=== PATIENT | male | born 1955 | race Two or more races ===

== ENCOUNTER 2020-04-04 12:47 | Inpatient (IN) | payer OTHER ==
[~2020-04-04] VITALS: Ht 165.1 cm; Wt 121.3 kg
[2020-04-04] MEDS ORDERED: ACETAMINOPHEN 325 MG TAB PO ONE ×2 (13:39→13:45)
[2020-04-04 13:40] LABS: Basophils # (auto) 0.1 10 ^3/uL (0-0.2); Basophils % (auto) 1.1 % (0.0-2.0); Eosinophils # (auto) 0 10 ^3/uL (0-0.8); Hematocrit 44.3 % (41.0-53.0); Hemoglobin 15.1 g/dL (13.5-17.5); Lymphocytes # (auto) 1.2 10 ^3/uL (0.4-5.4); Lymphocytes % (auto) 21.7 % (10.0-50.0); Mean Corpuscular Hemoglobin 31.9 pg (28.0-32.0); Mean Corpuscular Hgb Conc. 34.1 g/dL (32.0-36.0); Mean Corpuscular Volume 93.5 fL (80.0-100.0); Monocytes # (auto) 0.4 10 ^3/uL (0-1.3); Monocytes % (auto) 7.7 % (0.0-12.0); Neutrophils # (auto) 3.9 10 ^3/uL (1.6-8.6); Neutrophils % (auto) 69.5 % (37.0-80.0); Nucleated Red Blood Cells % 0.4 %; Platelet Count (auto) 178 10^3/uL (140-450); Red Blood Cells 4.74 10^6/uL (4.5-5.90); Red Cell Distribution Width 13.3 % (11.8-14.3); White Blood Cell 5.6 10^3/uL (4.4-10.8)
[2020-04-04 13:50] LABS: Chloride 100 mmol/L (98-107); Potassium 3.8 mmol/L (3.5-5.1); Sodium 134 mmol/L (136-145)
[2020-04-04 14:00] LABS: Alanine Aminotransferase 39 U/L (16-61); Albumin 3.1 g/dL (3.4-5.0); Alkaline Phosphatase 121 U/L (45-117); Anion Gap 5 (5-15); Aspartate Aminotransferase 56 U/L (15-37); BUN/Creatinine Ratio 7.5; Bilirubin, Total 1.1 mg/dL (0.2-1.0); Blood Urea Nitrogen 8 mg/dL (7-18); Calcium 8.5 mg/dL (8.5-10.1); Carbon Dioxide 29 mmol/L (21-32); GFR African American 89 mL/min; GFR Non-African American 74 mL/min; Glucose 109 mg/dL (74-106); Total Protein 8.9 g/dL (6.4-8.2)
[2020-04-04] MEDS ORDERED: MORPHINE SULF INJ 2 MG/ML SYRINGE 1ML IV PRN ×2 (18:45→20:00)
[2020-04-04] MEDS ORDERED: NITROGLYCERIN 0.4 MG SL TAB SL PRN (18:45)
[2020-04-04] MEDS ORDERED: PROMETHAZINE HCL 25 MG/ML 1ML IV PRN (20:00)
[2020-04-04] MEDS ORDERED: ACETAMINOPHEN 500 MG TAB PO PRN (20:00)
[2020-04-04] MEDS ORDERED: traMADol HCL 50 MG TAB PO PRN (20:00)
[2020-04-04] MEDS ORDERED: LACTULOSE 20Gm/30ML SOLN PO PRN (20:00)
[2020-04-04] MEDS ORDERED: TEMAZEPAM 15 MG CAP PO PRN (20:00)
[2020-04-04] MEDS: BUDESONIDE (INHALATION) 180 MCG IH IN SCH (22:00)
[2020-04-04] MEDS: SODIUM CHLOR 0.9% PF (SALINE LOCK) 10ML VIAL/SYR IV SCH (22:25)
[2020-04-04] MEDS: ATORVASTATIN 20 MG TAB PO SCH (22:26)
[2020-04-04] MEDS: ENOXAPARIN SOD 40 MG/0.4 ML SYRINGE SC SCH (22:26)
[2020-04-04] MEDS ORDERED: guaiFENesin-DM 100/10mg/5ml SYR PO PRN (23:45)
[2020-04-05] MEDS ORDERED: guaiFENesin-DM 100/10mg/5ml SYR PO PRN (05:00)
[2020-04-05] MEDS: SODIUM CHLOR 0.9% PF (SALINE LOCK) 10ML VIAL/SYR IV SCH ×3 (07:09→21:52)
[2020-04-05] MEDS: DexAMETHasone SOD PHOS 10MG/1ML VIAL INJ IV SCH (10:41)
[2020-04-05] MEDS: ZINC SULFATE 220mg CAP or TAB PO SCH (10:42)
[2020-04-05] MEDS: ASPirin 81 mg TAB PO SCH (10:42)
[2020-04-05] MEDS: ASCORBIC ACID 1,000 MG TAB PO SCH (10:42)
[2020-04-05] MEDS: levoFLOXacin 500MG 100 ML IV SCH (10:42)
[2020-04-05] MEDS: POTASSIUM CHL 20 Meq TABLET PO SCH (10:42)
[2020-04-05] MEDS: CHOLECALCIFEROL (VITD3) 2,000 UNIT CAP PO SCH (10:43)
[2020-04-05] MEDS: BUDESONIDE (INHALATION) 180 MCG IH IN SCH ×2 (10:43→20:04)
[2020-04-05] MEDS: ENOXAPARIN SOD 40 MG/0.4 ML SYRINGE SC SCH ×2 (10:43→21:51)
[2020-04-05] MEDS: ENALAPRIL MALEATE 2.5 MG TAB PO SCH (10:54)
[2020-04-05] MEDS: FUROSEMIDE 40 MG/4 ML VIAL IV SCH (10:54)
[2020-04-05] MEDS ORDERED: LOSA-69 PO (14:51)
[2020-04-05] MEDS ORDERED: SIMV-13 PO (14:51)
[2020-04-05] MEDS ORDERED: CHOL500021 PO (16:09)
[2020-04-05] MEDS ORDERED: MAGN400C3 PO (16:09)
[2020-04-05] MEDS: ALBUTEROL SULF HFA 90MCG INH 200DOSE IN PRN (20:07)
[2020-04-05] MEDS: ATORVASTATIN 20 MG TAB PO SCH (21:52)
[2020-04-06] VITALS: BP 140/80
[2020-04-06] MEDS: SODIUM CHLOR 0.9% PF (SALINE LOCK) 10ML VIAL/SYR IV SCH ×3 (05:53→21:26)
[2020-04-06 08:00] VITALS: BP 121/75
[2020-04-06] MEDS: BUDESONIDE (INHALATION) 180 MCG IH IN SCH ×2 (08:12→20:37)
[2020-04-06] MEDS: ALBUTEROL SULF HFA 90MCG INH 200DOSE IN PRN ×2 (08:12→20:38)
[2020-04-06] MEDS: DexAMETHasone SOD PHOS 10MG/1ML VIAL INJ IV SCH (09:50)
[2020-04-06] MEDS: levoFLOXacin 500MG 100 ML IV SCH (09:53)
[2020-04-06] MEDS: FUROSEMIDE 40 MG/4 ML VIAL IV SCH (09:53)
[2020-04-06] MEDS: POTASSIUM CHL 20 Meq TABLET PO SCH (09:54)
[2020-04-06] MEDS: ASCORBIC ACID 1,000 MG TAB PO SCH (09:58)
[2020-04-06] MEDS: CHOLECALCIFEROL (VITD3) 2,000 UNIT CAP PO SCH (09:58)
[2020-04-06] MEDS: ENOXAPARIN SOD 40 MG/0.4 ML SYRINGE SC SCH ×2 (09:59→21:27)
[2020-04-06] MEDS: ENALAPRIL MALEATE 2.5 MG TAB PO SCH (09:59)
[2020-04-06] MEDS: ZINC SULFATE 220mg CAP or TAB PO SCH (10:00)
[2020-04-06] MEDS: ASPirin 81 mg TAB PO SCH (10:02)
[2020-04-06 16:00] VITALS: BP 111/64
[2020-04-06] MEDS ORDERED: REMDESIVIR PER PHARMACY 0 ML IV SCH (17:30)
[2020-04-06] MEDS ORDERED: REMDESIVIR 200 MG in NS 210ml LOADING DOSE ADULT IV ONE (18:30)
[2020-04-06] MEDS: ATORVASTATIN 20 MG TAB PO SCH (21:26)
[2020-04-07] VITALS: BP 137/74
[2020-04-07] MEDS: SODIUM CHLOR 0.9% PF (SALINE LOCK) 10ML VIAL/SYR IV SCH ×3 (05:01→21:10)
[2020-04-07] MEDS: BUDESONIDE (INHALATION) 180 MCG IH IN SCH ×2 (07:30→19:59)
[2020-04-07] MEDS: ALBUTEROL SULF HFA 90MCG INH 200DOSE IN PRN ×2 (07:30→19:59)
[2020-04-07 08:00] VITALS: BP 117/73
[2020-04-07 08:00] LABS: Basophils # (auto) 0 10 ^3/uL (0-0.2); Basophils % (auto) 0.2 % (0.0-2.0); Eosinophils # (auto) 0 10 ^3/uL (0-0.8); Hematocrit 40.7 % (41.0-53.0); Lymphocytes # (auto) 0.7 10 ^3/uL (0.4-5.4); Lymphocytes % (auto) 6.9 % (10.0-50.0); Mean Corpuscular Hemoglobin 31.5 pg (28.0-32.0); Mean Corpuscular Hgb Conc. 34.5 g/dL (32.0-36.0); Mean Corpuscular Volume 91.5 fL (80.0-100.0); Monocytes # (auto) 0.5 10 ^3/uL (0-1.3); Monocytes % (auto) 4.5 % (0.0-12.0); Neutrophils # (auto) 9.5 10 ^3/uL (1.6-8.6); Neutrophils % (auto) 88.4 % (37.0-80.0); Platelet Count (auto) 226 10^3/uL (140-450); Red Blood Cells 4.45 10^6/uL (4.5-5.90); Red Cell Distribution Width 13.3 % (11.8-14.3); White Blood Cell 10.7 10^3/uL (4.4-10.8)
[2020-04-07 08:15] LABS: INR 1.03 (0.9-1.15); Partial Thromboplastin Time 29.2 sec (23.0-31.2)
[2020-04-07 08:57] LABS: Albumin 2.6 g/dL (3.4-5.0); Bilirubin, Total 0.7 mg/dL (0.2-1.0); CRP High Sensitivity 9.76 mg/dL (< 0.3); Calcium 8.6 mg/dL (8.5-10.1); Potassium 3.7 mmol/L (3.5-5.1); Total Protein 7.8 g/dL (6.4-8.2)
[2020-04-07] MEDS: FUROSEMIDE 40 MG/4 ML VIAL IV SCH (10:43)
[2020-04-07] MEDS: DexAMETHasone SOD PHOS 10MG/1ML VIAL INJ IV SCH (10:44)
[2020-04-07] MEDS: levoFLOXacin 500MG 100 ML IV SCH (10:44)
[2020-04-07] MEDS: ZINC SULFATE 220mg CAP or TAB PO SCH (10:44)
[2020-04-07] MEDS: ASPirin 81 mg TAB PO SCH (10:44)
[2020-04-07] MEDS: CHOLECALCIFEROL (VITD3) 2,000 UNIT CAP PO SCH (10:45)
[2020-04-07] MEDS: ASCORBIC ACID 1,000 MG TAB PO SCH (10:45)
[2020-04-07] MEDS: POTASSIUM CHL 20 Meq TABLET PO SCH (10:45)
[2020-04-07] MEDS: ENOXAPARIN SOD 40 MG/0.4 ML SYRINGE SC SCH ×2 (10:45→21:10)
[2020-04-07] MEDS: ENALAPRIL MALEATE 2.5 MG TAB PO SCH (10:45)
[2020-04-07 15:45] VITALS: BP 111/65
[2020-04-07] MEDS: REMDESIVIR 100mg 100 MG in SODIUM CHL 0.9% 230 ML IV SCH (16:09)
[2020-04-07] MEDS: traZODone HCL 50 MG TAB PO SCH (21:10)
[2020-04-07] MEDS: ATORVASTATIN 20 MG TAB PO SCH (21:10)
[2020-04-08] VITALS: BP 124/63
[2020-04-08 01:57] VITALS: BP 124/63
[2020-04-08] MEDS: SODIUM CHLOR 0.9% PF (SALINE LOCK) 10ML VIAL/SYR IV SCH ×3 (06:15→22:54)
[2020-04-08] MEDS: BUDESONIDE (INHALATION) 180 MCG IH IN SCH ×2 (07:13→21:46)
[2020-04-08] MEDS: ALBUTEROL SULF HFA 90MCG INH 200DOSE IN PRN ×2 (07:13→21:46)
[2020-04-08 08:00] VITALS: BP 120/76
[2020-04-08 08:17] LABS: Albumin 2.6 g/dL (3.4-5.0); BUN/Creatinine Ratio 16.9; Bilirubin, Total 0.9 mg/dL (0.2-1.0); Calcium 8.3 mg/dL (8.5-10.1)
[2020-04-08] MEDS: ENOXAPARIN SOD 40 MG/0.4 ML SYRINGE SC SCH ×2 (09:30→22:55)
[2020-04-08] MEDS: POTASSIUM CHL 20 Meq TABLET PO SCH (09:30)
[2020-04-08] MEDS: ASCORBIC ACID 1,000 MG TAB PO SCH (09:30)
[2020-04-08] MEDS: ASPirin 81 mg TAB PO SCH (09:30)
[2020-04-08] MEDS: DexAMETHasone SOD PHOS 10MG/1ML VIAL INJ IV SCH (09:30)
[2020-04-08] MEDS: levoFLOXacin 500MG 100 ML IV SCH (09:30)
[2020-04-08] MEDS: CHOLECALCIFEROL (VITD3) 2,000 UNIT CAP PO SCH (09:30)
[2020-04-08] MEDS: ZINC SULFATE 220mg CAP or TAB PO SCH (09:30)
[2020-04-08] MEDS: ENALAPRIL MALEATE 2.5 MG TAB PO SCH (09:31)
[2020-04-08] MEDS: FUROSEMIDE 40 MG/4 ML VIAL IV SCH (09:31)
[2020-04-08] MEDS: REMDESIVIR 100mg 100 MG in SODIUM CHL 0.9% 230 ML IV SCH (15:18)
[2020-04-08 16:00] VITALS: BP 116/65
[2020-04-08] MEDS: traZODone HCL 50 MG TAB PO SCH (22:54)
[2020-04-08] MEDS: ATORVASTATIN 20 MG TAB PO SCH (22:54)
[2020-04-09] VITALS: BP 110/66
[2020-04-09] MEDS: SODIUM CHLOR 0.9% PF (SALINE LOCK) 10ML VIAL/SYR IV SCH ×3 (06:57→23:01)
[2020-04-09 07:11] LABS: Potassium 4.1 mmol/L (3.5-5.1)
[2020-04-09 07:26] LABS: Albumin 2.5 g/dL (3.4-5.0); BUN/Creatinine Ratio 20.3; Bilirubin, Total 0.9 mg/dL (0.2-1.0); Calcium 8.3 mg/dL (8.5-10.1); Total Protein 7.7 g/dL (6.4-8.2)
[2020-04-09 08:00] VITALS: BP 138/72
[2020-04-09] MEDS: ALBUTEROL SULF HFA 90MCG INH 200DOSE IN PRN ×2 (08:38→19:16)
[2020-04-09] MEDS: BUDESONIDE (INHALATION) 180 MCG IH IN SCH ×2 (08:38→19:16)
[2020-04-09] MEDS: DexAMETHasone SOD PHOS 10MG/1ML VIAL INJ IV SCH (09:58)
[2020-04-09] MEDS: ASPirin 81 mg TAB PO SCH (10:12)
[2020-04-09] MEDS: FUROSEMIDE 40 MG/4 ML VIAL IV SCH (10:12)
[2020-04-09] MEDS: CHOLECALCIFEROL (VITD3) 2,000 UNIT CAP PO SCH (10:13)
[2020-04-09] MEDS: POTASSIUM CHL 20 Meq TABLET PO SCH (10:13)
[2020-04-09] MEDS: ENALAPRIL MALEATE 2.5 MG TAB PO SCH (10:13)
[2020-04-09] MEDS: ASCORBIC ACID 1,000 MG TAB PO SCH (10:13)
[2020-04-09] MEDS: ZINC SULFATE 220mg CAP or TAB PO SCH (10:13)
[2020-04-09] MEDS: levoFLOXacin 500 MG TAB PO SCH (10:13)
[2020-04-09] MEDS: ENOXAPARIN SOD 40 MG/0.4 ML SYRINGE SC SCH ×2 (10:14→23:00)
[2020-04-09] MEDS: REMDESIVIR 100mg 100 MG in SODIUM CHL 0.9% 230 ML IV SCH (15:00)
[2020-04-09 16:00] VITALS: BP 109/56
[2020-04-09] MEDS: traZODone HCL 50 MG TAB PO SCH (23:00)
[2020-04-09] MEDS: ATORVASTATIN 20 MG TAB PO SCH (23:00)
[2020-04-10] VITALS: BP 96/39
[2020-04-10] MEDS: SODIUM CHLOR 0.9% PF (SALINE LOCK) 10ML VIAL/SYR IV SCH ×3 (06:23→22:12)
[2020-04-10 07:29] LABS: Albumin 2.6 g/dL (3.4-5.0); Potassium 3.8 mmol/L (3.5-5.1)
[2020-04-10 07:39] LABS: CRP High Sensitivity 2.68 mg/dL (< 0.3); Calcium 8.1 mg/dL (8.5-10.1); Total Protein 7.9 g/dL (6.4-8.2)
[2020-04-10 08:00] VITALS: BP 114/62
[2020-04-10] MEDS: BUDESONIDE (INHALATION) 180 MCG IH IN SCH ×2 (08:16→19:26)
[2020-04-10] MEDS: DexAMETHasone SOD PHOS 10MG/1ML VIAL INJ IV SCH (08:16)
[2020-04-10] MEDS: ASPirin 81 mg TAB PO SCH (08:17)
[2020-04-10] MEDS: levoFLOXacin 500 MG TAB PO SCH (08:22)
[2020-04-10] MEDS: ENALAPRIL MALEATE 2.5 MG TAB PO SCH (08:22)
[2020-04-10] MEDS: ZINC SULFATE 220mg CAP or TAB PO SCH (08:22)
[2020-04-10] MEDS: CHOLECALCIFEROL (VITD3) 2,000 UNIT CAP PO SCH (08:22)
[2020-04-10] MEDS: POTASSIUM CHL 20 Meq TABLET PO SCH (08:22)
[2020-04-10] MEDS: ASCORBIC ACID 1,000 MG TAB PO SCH (08:22)
[2020-04-10] MEDS: ENOXAPARIN SOD 40 MG/0.4 ML SYRINGE SC SCH ×2 (08:23→22:11)
[2020-04-10] MEDS: ALBUTEROL SULF HFA 90MCG INH 200DOSE IN SCH ×2 (09:22→19:26)
[2020-04-10] MEDS: FUROSEMIDE 40 MG/4 ML VIAL IV SCH (10:29)
[2020-04-10 14:00] VITALS: BP 106/65
[2020-04-10] MEDS: REMDESIVIR 100mg 100 MG in SODIUM CHL 0.9% 230 ML IV SCH (15:37)
[2020-04-10 16:00] VITALS: BP 106/65
[2020-04-10] MEDS: ATORVASTATIN 20 MG TAB PO SCH (22:11)
[2020-04-10] MEDS: traZODone HCL 50 MG TAB PO SCH (22:11)
[2020-04-10 23:33] VITALS: BP 130/55
[2020-04-11] MEDS: SODIUM CHLOR 0.9% PF (SALINE LOCK) 10ML VIAL/SYR IV SCH ×3 (05:06→21:45)
[2020-04-11 06:04] LABS: Basophils # (auto) 0 10 ^3/uL (0-0.2); Basophils % (auto) 0.2 % (0.0-2.0); Eosinophils # (auto) 0 10 ^3/uL (0-0.8); Eosinophils % (auto) 0.2 % (0.0-7.0); Hematocrit 42.9 % (41.0-53.0); Lymphocytes % (auto) 10.2 % (10.0-50.0); Mean Corpuscular Hemoglobin 32.2 pg (28.0-32.0); Monocytes # (auto) 0.2 10 ^3/uL (0-1.3); Monocytes % (auto) 2.5 % (0.0-12.0); Neutrophils # (auto) 8.5 10 ^3/uL (1.6-8.6); Neutrophils % (auto) 86.9 % (37.0-80.0); Nucleated Red Blood Cells % 0.1 %; Platelet Count (auto) 309 10^3/uL (140-450); Red Blood Cells 4.67 10^6/uL (4.5-5.90); Red Cell Distribution Width 13.1 % (11.8-14.3); White Blood Cell 9.8 10^3/uL (4.4-10.8)
[2020-04-11 06:31] LABS: Potassium 4.6 mmol/L (3.5-5.1)
[2020-04-11] MEDS: BUDESONIDE (INHALATION) 180 MCG IH IN SCH ×2 (06:40→20:14)
[2020-04-11] MEDS: ALBUTEROL SULF HFA 90MCG INH 200DOSE IN SCH ×3 (06:40→20:14)
[2020-04-11 06:56] LABS: Albumin 2.4 g/dL (3.4-5.0); BUN/Creatinine Ratio 23.8; Bilirubin, Total 1.2 mg/dL (0.2-1.0); Calcium 8.2 mg/dL (8.5-10.1); Total Protein 8.1 g/dL (6.4-8.2)
[2020-04-11 08:00] VITALS: BP 105/50
[2020-04-11] MEDS: FUROSEMIDE 40 MG/4 ML VIAL IV SCH (09:50)
[2020-04-11] MEDS: ASPirin 81 mg TAB PO SCH (09:51)
[2020-04-11] MEDS: ZINC SULFATE 220mg CAP or TAB PO SCH (09:51)
[2020-04-11] MEDS: DexAMETHasone SOD PHOS 10MG/1ML VIAL INJ IV SCH (09:51)
[2020-04-11] MEDS: levoFLOXacin 500 MG TAB PO SCH (09:52)
[2020-04-11] MEDS: ENALAPRIL MALEATE 2.5 MG TAB PO SCH (09:52)
[2020-04-11] MEDS: POTASSIUM CHL 20 Meq TABLET PO SCH (09:52)
[2020-04-11] MEDS: ASCORBIC ACID 1,000 MG TAB PO SCH (09:52)
[2020-04-11] MEDS: ENOXAPARIN SOD 40 MG/0.4 ML SYRINGE SC SCH ×2 (09:53→21:45)
[2020-04-11] MEDS: CHOLECALCIFEROL (VITD3) 2,000 UNIT CAP PO SCH (09:53)
[2020-04-11 16:00] VITALS: BP 112/68
[2020-04-11] MEDS: ATORVASTATIN 20 MG TAB PO SCH (21:45)
[2020-04-11] MEDS: traZODone HCL 50 MG TAB PO SCH (21:45)
[2020-04-12 00:01] VITALS: BP 114/62
[2020-04-12] MEDS: SODIUM CHLOR 0.9% PF (SALINE LOCK) 10ML VIAL/SYR IV SCH ×3 (05:29→21:31)
[2020-04-12 07:44] LABS: Basophils # (auto) 0.1 10 ^3/uL (0-0.2); Basophils % (auto) 0.8 % (0.0-2.0); Eosinophils # (auto) 0 10 ^3/uL (0-0.8); Eosinophils % (auto) 0.2 % (0.0-7.0); Hematocrit 43.1 % (41.0-53.0); Hemoglobin 14.8 g/dL (13.5-17.5); Lymphocytes # (auto) 0.9 10 ^3/uL (0.4-5.4); Lymphocytes % (auto) 11.1 % (10.0-50.0); Mean Corpuscular Hemoglobin 31.8 pg (28.0-32.0); Mean Corpuscular Hgb Conc. 34.3 g/dL (32.0-36.0); Mean Corpuscular Volume 92.5 fL (80.0-100.0); Monocytes # (auto) 0.2 10 ^3/uL (0-1.3); Monocytes % (auto) 2.8 % (0.0-12.0); Neutrophils # (auto) 7.2 10 ^3/uL (1.6-8.6); Neutrophils % (auto) 85.1 % (37.0-80.0); Nucleated Red Blood Cells % 0.1 %; Platelet Count (auto) 323 10^3/uL (140-450); Red Blood Cells 4.66 10^6/uL (4.5-5.90); Red Cell Distribution Width 13.4 % (11.8-14.3); White Blood Cell 8.4 10^3/uL (4.4-10.8)
[2020-04-12 08:00] VITALS: BP 110/60
[2020-04-12 08:06] LABS: Calcium 8.1 mg/dL (8.5-10.1); Potassium 4.1 mmol/L (3.5-5.1)
[2020-04-12 08:08] LABS: BUN/Creatinine Ratio 21.2
[2020-04-12] MEDS: ALBUTEROL SULF HFA 90MCG INH 200DOSE IN SCH ×2 (09:22→20:23)
[2020-04-12] MEDS: FUROSEMIDE 40 MG/4 ML VIAL IV SCH (10:00)
[2020-04-12] MEDS: BUDESONIDE (INHALATION) 180 MCG IH IN SCH ×2 (10:00→20:22)
[2020-04-12] MEDS: ENOXAPARIN SOD 40 MG/0.4 ML SYRINGE SC SCH ×2 (10:04→21:32)
[2020-04-12] MEDS: DexAMETHasone SOD PHOS 10MG/1ML VIAL INJ IV SCH (10:04)
[2020-04-12] MEDS: ASPirin 81 mg TAB PO SCH (10:04)
[2020-04-12] MEDS: ZINC SULFATE 220mg CAP or TAB PO SCH (10:04)
[2020-04-12] MEDS: POTASSIUM CHL 20 Meq TABLET PO SCH (10:05)
[2020-04-12] MEDS: levoFLOXacin 500 MG TAB PO SCH (10:05)
[2020-04-12] MEDS: CHOLECALCIFEROL (VITD3) 2,000 UNIT CAP PO SCH (10:05)
[2020-04-12] MEDS: ASCORBIC ACID 1,000 MG TAB PO SCH (10:05)
[2020-04-12] MEDS: ENALAPRIL MALEATE 2.5 MG TAB PO SCH (10:06)
[2020-04-12 16:00] VITALS: BP 115/79
[2020-04-12] MEDS: traZODone HCL 50 MG TAB PO SCH (21:31)
[2020-04-12] MEDS: ATORVASTATIN 20 MG TAB PO SCH (21:32)
[2020-04-13] VITALS: BP 107/47
[2020-04-13] MEDS: SODIUM CHLOR 0.9% PF (SALINE LOCK) 10ML VIAL/SYR IV SCH ×3 (06:01→20:38)
[2020-04-13 06:38] LABS: Basophils # (auto) 0 10 ^3/uL (0-0.2); Basophils % (auto) 0.2 % (0.0-2.0); Eosinophils # (auto) 0 10 ^3/uL (0-0.8); Eosinophils % (auto) 0.1 % (0.0-7.0); Hematocrit 43.9 % (41.0-53.0); Hemoglobin 14.8 g/dL (13.5-17.5); Lymphocytes % (auto) 8.9 % (10.0-50.0); Mean Corpuscular Hemoglobin 31.7 pg (28.0-32.0); Mean Corpuscular Hgb Conc. 33.8 g/dL (32.0-36.0); Mean Corpuscular Volume 93.7 fL (80.0-100.0); Monocytes # (auto) 0.4 10 ^3/uL (0-1.3); Monocytes % (auto) 3.6 % (0.0-12.0); Neutrophils # (auto) 9.3 10 ^3/uL (1.6-8.6); Neutrophils % (auto) 87.2 % (37.0-80.0); Platelet Count (auto) 331 10^3/uL (140-450); Red Blood Cells 4.68 10^6/uL (4.5-5.90); Red Cell Distribution Width 13.2 % (11.8-14.3); White Blood Cell 10.7 10^3/uL (4.4-10.8)
[2020-04-13 07:25] LABS: BUN/Creatinine Ratio 22.9; Potassium 4.2 mmol/L (3.5-5.1)
[2020-04-13] MEDS: ALBUTEROL SULF HFA 90MCG INH 200DOSE IN SCH ×2 (07:40→14:00)
[2020-04-13] MEDS: BUDESONIDE (INHALATION) 180 MCG IH IN SCH ×2 (07:40→19:23)
[2020-04-13 08:00] VITALS: BP 104/60
[2020-04-13] MEDS: ASPirin 81 mg TAB PO SCH (08:52)
[2020-04-13] MEDS: DexAMETHasone SOD PHOS 10MG/1ML VIAL INJ IV SCH (08:52)
[2020-04-13] MEDS: POTASSIUM CHL 20 Meq TABLET PO SCH (08:52)
[2020-04-13] MEDS: levoFLOXacin 500 MG TAB PO SCH (08:53)
[2020-04-13] MEDS: ASCORBIC ACID 1,000 MG TAB PO SCH (08:53)
[2020-04-13] MEDS: ZINC SULFATE 220mg CAP or TAB PO SCH (08:53)
[2020-04-13] MEDS: CHOLECALCIFEROL (VITD3) 2,000 UNIT CAP PO SCH (08:54)
[2020-04-13] MEDS: FUROSEMIDE 40 MG/4 ML VIAL IV SCH (08:55)
[2020-04-13] MEDS: ENOXAPARIN SOD 40 MG/0.4 ML SYRINGE SC SCH ×2 (08:55→20:38)
[2020-04-13] MEDS: ENALAPRIL MALEATE 2.5 MG TAB PO SCH (08:55)
[2020-04-13 16:00] VITALS: BP 142/84
[2020-04-13] MEDS: traZODone HCL 50 MG TAB PO SCH (20:38)
[2020-04-13] MEDS: ATORVASTATIN 20 MG TAB PO SCH (20:38)
[2020-04-13 23:24] VITALS: BP 99/60
[2020-04-13 23:48] VITALS: BP_SYST 103; BP_SYST 126; BP_DIAS 49; BP_DIAS 81
[2020-04-14 01:30] VITALS: BP 106/59
[2020-04-14] MEDS: SODIUM CHLOR 0.9% PF (SALINE LOCK) 10ML VIAL/SYR IV SCH ×3 (04:12→21:10)
[2020-04-14 06:45] LABS: Basophils # (auto) 0 10 ^3/uL (0-0.2); Basophils % (auto) 0.2 % (0.0-2.0); Eosinophils # (auto) 0 10 ^3/uL (0-0.8); Hematocrit 42.8 % (41.0-53.0); Lymphocytes # (auto) 0.9 10 ^3/uL (0.4-5.4); Lymphocytes % (auto) 11.2 % (10.0-50.0); Mean Corpuscular Hemoglobin 32.3 pg (28.0-32.0); Mean Corpuscular Hgb Conc. 34.9 g/dL (32.0-36.0); Mean Corpuscular Volume 92.4 fL (80.0-100.0); Monocytes # (auto) 0.4 10 ^3/uL (0-1.3); Monocytes % (auto) 4.9 % (0.0-12.0); Neutrophils # (auto) 6.7 10 ^3/uL (1.6-8.6); Neutrophils % (auto) 83.7 % (37.0-80.0); Platelet Count (auto) 323 10^3/uL (140-450); Red Blood Cells 4.63 10^6/uL (4.5-5.90); Red Cell Distribution Width 13.2 % (11.8-14.3); White Blood Cell 7.9 10^3/uL (4.4-10.8)
[2020-04-14 07:06] LABS: Potassium 4.2 mmol/L (3.5-5.1)
[2020-04-14 07:21] LABS: BUN/Creatinine Ratio 23.3; Calcium 8.4 mg/dL (8.5-10.1)
[2020-04-14 08:00] VITALS: BP 112/48
[2020-04-14] MEDS: POTASSIUM CHL 20 Meq TABLET PO SCH (09:26)
[2020-04-14] MEDS: DexAMETHasone SOD PHOS 10MG/1ML VIAL INJ IV SCH (09:26)
[2020-04-14] MEDS: ASPirin 81 mg TAB PO SCH (09:27)
[2020-04-14] MEDS: ENOXAPARIN SOD 40 MG/0.4 ML SYRINGE SC SCH ×2 (09:28→21:11)
[2020-04-14] MEDS: CHOLECALCIFEROL (VITD3) 2,000 UNIT CAP PO SCH (09:28)
[2020-04-14] MEDS: ZINC SULFATE 220mg CAP or TAB PO SCH (09:28)
[2020-04-14] MEDS: ASCORBIC ACID 1,000 MG TAB PO SCH (09:29)
[2020-04-14] MEDS: ENALAPRIL MALEATE 2.5 MG TAB PO SCH (09:30)
[2020-04-14] MEDS: ALBUTEROL SULF HFA 90MCG INH 200DOSE IN SCH ×3 (09:30→19:05)
[2020-04-14] MEDS ORDERED: FUROSEMIDE 20 MG TAB PO SCH (10:00)
[2020-04-14] MEDS: BUDESONIDE (INHALATION) 180 MCG IH IN SCH ×2 (10:00→19:05)
[2020-04-14 16:00] VITALS: BP 102/62
[2020-04-14] MEDS: traZODone HCL 50 MG TAB PO SCH (21:10)
[2020-04-14] MEDS: ATORVASTATIN 20 MG TAB PO SCH (21:11)
[2020-04-15] VITALS: BP 100/65
[2020-04-15] MEDS: SODIUM CHLOR 0.9% PF (SALINE LOCK) 10ML VIAL/SYR IV SCH ×2 (05:34→14:07)
[2020-04-15 06:08] LABS: Basophils # (auto) 0 10 ^3/uL (0-0.2); Basophils % (auto) 0.3 % (0.0-2.0); Eosinophils # (auto) 0 10 ^3/uL (0-0.8); Eosinophils % (auto) 0.1 % (0.0-7.0); Hematocrit 44.6 % (41.0-53.0); Hemoglobin 15.3 g/dL (13.5-17.5); Lymphocytes # (auto) 0.9 10 ^3/uL (0.4-5.4); Lymphocytes % (auto) 10.9 % (10.0-50.0); Mean Corpuscular Hemoglobin 31.8 pg (28.0-32.0); Mean Corpuscular Hgb Conc. 34.2 g/dL (32.0-36.0); Mean Corpuscular Volume 92.9 fL (80.0-100.0); Monocytes # (auto) 0.5 10 ^3/uL (0-1.3); Monocytes % (auto) 5.2 % (0.0-12.0); Neutrophils # (auto) 7.2 10 ^3/uL (1.6-8.6); Neutrophils % (auto) 83.5 % (37.0-80.0); Nucleated Red Blood Cells % 0.1 %; Platelet Count (auto) 312 10^3/uL (140-450); Red Cell Distribution Width 13.2 % (11.8-14.3); White Blood Cell 8.6 10^3/uL (4.4-10.8)
[2020-04-15 06:33] LABS: BUN/Creatinine Ratio 21.4; Calcium 8.5 mg/dL (8.5-10.1); Potassium 4.5 mmol/L (3.5-5.1)
[2020-04-15] MEDS: ALBUTEROL SULF HFA 90MCG INH 200DOSE IN SCH ×2 (07:12→18:53)
[2020-04-15] MEDS: BUDESONIDE (INHALATION) 180 MCG IH IN SCH ×2 (07:12→18:53)
[2020-04-15] MEDS ORDERED: ALBUAER3 IN (10:31)
[2020-04-15] MEDS ORDERED: ASPI81CH43 PO (10:33)
[2020-04-15] MEDS: ASPirin 81 mg TAB PO SCH (11:29)
[2020-04-15] MEDS: ENOXAPARIN SOD 40 MG/0.4 ML SYRINGE SC SCH (11:30)
[2020-04-15 16:00] VITALS: BP 109/66
[2020-04-15 17:28] VITALS: BP 119/74
== END 2020-04-15 21:22 | disposition home health service (06) | DRG 177 ==
LOC: ER 12:47 → TELE 12:48 → TELE-WESTW 04-05 17:38
PROVIDERS: ADMIT Internal Medicine; ATTEND Hospitalist
PROC: XW033E5 Introduction of Remdesivir Anti-infective into Peripheral Vein, Percutaneous Approach, New Technology Group 5 (ICD-10-PCS; 2020-04-06)
PROC: XW13325 Transfusion of Convalescent Plasma (Nonautologous) into Peripheral Vein, Percutaneous Approach, New Technology Group 5 (ICD-10-PCS; principal; 2020-04-13)
DX: U07.1 COVID-19 (principal); J12.82 Pneumonia due to coronavirus disease 2019; J96.01 Acute respiratory failure with hypoxia; E44.1 Mild protein-calorie malnutrition; Z68.41 Body mass index [BMI] 40.0-44.9, adult; E87.1 Hypo-osmolality and hyponatremia; J91.8 Pleural effusion in other conditions classified elsewhere; E66.01 Morbid (severe) obesity due to excess calories; E78.5 Hyperlipidemia, unspecified; Z66 Do not resuscitate; Z83.3 Family history of diabetes mellitus; Z99.81 Dependence on supplemental oxygen; Z88.0 Allergy status to penicillin; I11.0 Hypertensive heart disease with heart failure; I50.9 Heart failure, unspecified
CPT/HCPCS: 36415; 36600; 71045; 80048; 80053; 82550; 82728; 82805; 83880; 84484; 85025; 85379; 85610; 85652; 85730; 86141; 86850; 86900; 86901; 87426; 93005; 93306; 94640; 96365; 96375; 99291; G0378; J1100; J1956